=== PATIENT | male | born 1970 | race Caucasian/White ===

== ENCOUNTER 2019-10-04 15:03 | Emergency (ER) | payer BC, OTHER ==
[~2019-10-04] VITALS: Ht 180.3 cm; Wt 88.6 kg
[2019-10-04] MEDS ORDERED: ATEN50TA2 PO (15:15)
[2019-10-04 15:33] LABS: BASO % 0.4 % (0.0-1.0); EOS # 0.1 10^3/uL (0.0-0.5); EOS % 1.3 % (0.0-3.0); HEMATOCRIT 49.5 % (42.0-52.0); HEMOGLOBIN 17.1 g/dl (13.5-17.5); LYMPH # 2.6 10^3/uL (1.5-5.0); LYMPH % 33.9 % (24.0-44.0); MEAN CORPUSCULAR HEMOGLOBIN 32.8 pg (27.0-33.0); MEAN CORPUSCULAR HGB CONC 34.5 g/dl (32.0-36.5); MEAN CORPUSCULAR VOLUME 94.8 fl (80.0-96.0); MONO # 0.7 10^3/uL (0.0-0.8); NEUTROPHILS # 4.3 10^3/uL (1.5-8.5); PLATELET COUNT, AUTOMATED 170 10^3/uL (150-450); RED BLOOD COUNT 5.22 10^6/uL (4.30-6.10); WHITE BLOOD COUNT 7.8 10^3/uL (4.0-10.0)
--- NOTE | 2019-10-04 15:39 | REP ---
Clinical: Chest pain . Comparison: 05/14/2007 . Findings: The mediastinum and cardiac silhouette are stable and within normal limits for portable technique. 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 The lung alarcon are clear without acute consolidation, effusion, or pneumothorax. Skeletal structures are intact. Impression: No acute cardiopulmonary process appreciated. Known congenital malformation of the aorta. Electronically Signed by Jc Llanos MD 10/04/2019 03:30 P
[2019-10-04 16:12] LABS: ALBUMIN 3.4 GM/DL (3.2-5.2); ALT/SGPT 108 U/L (12-78); BILIRUBIN,DIRECT 0.2 MG/DL (0.0-0.2); BILIRUBIN,TOTAL 0.7 MG/DL (0.2-1.0); BLOOD UREA NITROGEN 27 MG/DL (7-18); CALCIUM LEVEL 9.6 MG/DL (8.5-10.1); CARBON DIOXIDE LEVEL 30 MEQ/L (21-32); CHLORIDE LEVEL 104 MEQ/L (98-107); CK-MB VALUE MASS 1.3 NG/ML (<3.6); CPK CREATINE PHOSPHOKINASE 56 U/L (39-308); GLOMERULAR FILTRATION RATE > 60.0 (>60); GLUCOSE, FASTING 127 MG/DL (70-100); LIPASE 136 U/L (73-393); MB/CK RELATIVE INDEX 2.32 (< OR =4); POTASSIUM SERUM 4.8 MEQ/L (3.5-5.1); SODIUM LEVEL 139 MEQ/L (136-145); TOTAL PROTEIN 8.5 GM/DL (6.4-8.2); TROPONIN I < 0.02 NG/ML (< 0.10)
[2019-10-04] MEDS ORDERED: ISOVUE-370 76% 100ML VIAL (Q9967) As Ordered ONE (16:42)
--- NOTE | 2019-10-04 17:16 | REP ---
Clinical: Chest pain. History of anomalous thoracoabdominal aorta. Technique: Axial contrast enhanced images from the thoracic inlet to the upper abdomen with coronal and sagittal re-formations using angiographic technique. 100 ml Isovue 370 intravenous contrast material administered without complication. Comparison: 05/24/2007. 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 The anomalous duplicated aorta than extends caudally below the diaphragm and posterior to the spleen and left kidney where it tapers to approximately 1.8 cm maximal diameter. At the level of the bifurcation/origin of the anomalous aorta, the presumed normal descending thoracic aorta appears completely thrombosed as it extends below the diaphragmatic hiatus and demonstrates atherosclerotic changes with intimal calcifications. The ascending thoracic aorta through the aortic arch and proximal descending thoracic aorta appear essentially normal. There is no evidence for cardiomegaly or pericardial effusion. The pulmonary vasculature appears normal. The bilateral lung alarcon are clear and without consolidation. No evidence for adenopathy. Impression: 1. 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 The aneurysm represents a relatively new finding as compared to chest CT dated 2006. Details as described above. 2. The remainder of the mediastinum and lung alarcon are normal / clear respectively. Electronically Signed by Jc Llanos MD 10/04/2019 05:07 P
--- NOTE | 2019-10-04 17:20 | REP ---
Clinical: Epigastric pain. Technique: Axial contrast enhanced images from the lung bases to the pubic symphysis with coronal and sagittal re-formations using 100 ml Isovue 370 intravenous contrast material. Findings: There appears to be complete thrombosis of the normal descending thoracic aorta extending to the upper abdomen with normal enhancement of a known anomalous duplicated thoracic aorta extending along the left posterior subpleural space into the left posterior abdomen behind the left kidney and spleen which then courses medially along the left psoas muscle to the normal position before bifurcating to common iliac arteries and backfilling the cranial portion of the abdominal aorta and branch vessels including celiac axis, superior mesenteric artery, renal arteries and inferior mesenteric artery. Liver, spleen, pancreas, gallbladder, bilateral adrenal glands and kidneys appear relatively normal. The enteric system is unremarkable and without obstruction or acute inflammatory process. Normal bladder and age appropriate prostate/seminal vesicles noted at no ascites. No free air. No adenopathy. Surrounding musculoskeletal structures are intact. Impression: 1. No acute abdominopelvic pathology appreciated. 2. 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 Electronically Signed by Jc Llanos MD 10/04/2019 05:12 P
[2019-10-04] MEDS ORDERED: MORPHINE 2 MG/ML 1ML VIAL (J2270) As Ordered ONE (18:04)
[2019-10-04] MEDS ORDERED: LABETALOL HCL 100 MG/20 ML VIAL IV STA ×2 (18:06→18:55)
[2019-10-04] MEDS: MORPHINE 2 MG/ML 1ML VIAL (J2270) IV PRN ×2 (18:14→19:15)
[2019-10-04] MEDS ORDERED: LABETALOL HCL 200 MG in D5W 160 ML IV SCH (18:15)
[2019-10-04 19:21] VITALS: BP 142/91
[2019-10-04 19:25] VITALS: BP 142/91
--- NOTE | 2019-10-05 15:35 | ECGEPIP ---
[facility] - ED Test Date: 2019-10-04 Pat Name: MILLI CRAVEN Department: Room: - Gender: Male Vp Informatics: : 1970 Requested By: NILSON Kiser Order Number: [id number] Reading MD: Gael Abernathy Measurements Intervals [place] Rate: 84 P: 80 MN: 132 QRS: 61 QRSD: 97 T: 73 QT: 380 QTc: 451 Interpretive Statements SINUS RHYTHM WITH SINUS ARRHYTHMIA POOR R WAVE PROGRESSION RIGHT ATRIAL ENLARGEMENT TALL T-WAVES, SUGGESTS HYPERKALEMIA NO PRIORS FOR COMPARISON Electronically Signed on 10-05-2019 15:35:11 EST by Gael Abernathy
== END 2019-10-04 19:26 | disposition short-term general hospital (02) ==
LOC: M ED 15:03
DX: I71.2 Thoracic aortic aneurysm, without rupture (principal); I10 Essential (primary) hypertension; Z98.61 Coronary angioplasty status; F17.218 Nicotine dependence, cigarettes, with other nicotine-induced disorders
CPT/HCPCS: 71045; 71275; 74177; 80048; 80076; 82550; 82553; 83690; 84484; 85025; 93005; 93041; 94760; 96374; 96375; 96376; 99285; J2270; Q9967

== ENCOUNTER → 2019-10-31 | Outpatient (CLI) | payer OTHER ==
[~2019-10-31] MED LIST: ATEN50TA2 PO; ISOVUE-370 76% 100ML VIAL (Q9967) As Ordered ONE
--- NOTE | 2019-10-31 17:06 | REP ---
CT of the chest with IV contrast for follow up evaluation of aortic coarctation: Comparison studies are the CT of the chest dated 10/04/2019 and 05/24/2007 as well as of the abdomen pelvis CT of 10/04/2019. 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 There is duplication of the aorta in the chest with the duplicated portion of the aorta reentering the abdominal aorta below the level of the renal arteries. On the prior study of 10/04 2019, there was a 5.2 cm saccular aneurysm in the duplicated segment of the aorta. On the study today there is an endovascular graft within the aneurysm of the duplicated aorta. No endovascular leak is identified. There again is thrombus within the [place] aorta at and above the level of the coarctation, as previously. The duplicated aorta is patent. The ascending aorta and aortic arch are unremarkable, as previously. The cardiac size is normal. There is no pericardial effusion. The lung alarcon are clear. There is no mediastinal or hilar adenopathy. The skeletal structures are unremarkable. The visualized upper abdomen is unremarkable except for the aorta coarctation/duplication anomaly. Impression: There is an endovascular stent within the aortic aneurysm as described. There is no evidence of endovascular leak. The aortic coarctation/duplication anomaly is as previously described. Electronically Signed by Dg Ocampo MD 10/31/2019 04:58 P
== END ==
LOC: M RAD 12:55
PROVIDERS: ATTEND Surgery
DX: Q25.1 Coarctation of aorta (principal); I71.9 Aortic aneurysm of unspecified site, without rupture; I74.09 Other arterial embolism and thrombosis of abdominal aorta; Z98.61 Coronary angioplasty status
CPT/HCPCS: 71260; Q9967

== ENCOUNTER 2024-11-25 14:49 | Inpatient (IN) | payer OTHER ==
[2024-11-25] VITALS (14 sets, daily range): BP systolic 128–167; BP diastolic 60–92; TEMP 97–98.5; O2SAT 92–96
[~2024-11-25] VITALS: Ht 185.4 cm; Wt 92.2 kg
[~2024-11-25 14:49] MED LIST changes: -ISOVUE-370 76% 100ML VIAL (Q9967) As Ordered ONE
[2024-11-25] MEDS ORDERED: LIPI10TA PO (14:59)
[2024-11-25] MEDS ORDERED: ISOVUE-370 76% 100ML VIAL As Ordered ONE (15:09)
[2024-11-25] MEDS ORDERED: ATOR80TA59 PO (15:46)
[2024-11-25] MEDS ORDERED: AMLO1TAB25 PO (15:46)
[2024-11-25] MEDS ORDERED: LISI10TA22 PO (15:46)
[2024-11-25] MEDS ORDERED: HOME MED LIST COMPLETE! XX SCH (15:50)
[2024-11-25 16:09] LABS: BASO % 0.4 % (0.0-1.0); EOS # 0.1 10^3/uL (0.0-0.5); EOS % 1.6 % (0.0-3.0); HEMATOCRIT 43.8 % (42.0-52.0); HEMOGLOBIN 15.4 g/dl (13.5-17.5); LYMPH % 24.6 % (24.0-44.0); MEAN CORPUSCULAR HEMOGLOBIN 32.8 pg (27.0-33.0); MEAN CORPUSCULAR HGB CONC 35.2 g/dl (32.0-36.5); MEAN CORPUSCULAR VOLUME 93.2 fl (80.0-96.0); MONO # 0.7 10^3/uL (0.0-0.8); MONO % 8.1 % (2.0-8.0); NEUTROPHILS # 5.3 10^3/uL (1.5-8.5); NEUTROPHILS % 65.1 % (36.0-66.0); PLATELET COUNT, AUTOMATED 155 10^3/uL (150-450); WHITE BLOOD COUNT 8.2 10^3/uL (4.0-10.0)
[2024-11-25 16:30] LABS: INR 1.05; PARTIAL THROMBOPLASTIN TIME 27.7 SECONDS (24.8-34.2)
[2024-11-25] MEDS: TENECTEPLASE 50 MG/10 ML VIAL IVP ONE (17:57)
[2024-11-25] MEDS: SODIUM CHLORIDE 0.9% INJ 10 ML SYR IV ONE ×2 (18:01→22:44)
[2024-11-25 18:47] LABS: CALCIUM LEVEL 9.4 MG/DL (8.5-10.1); CREATININE FOR GFR 1.58 MG/DL (0.70-1.30); GLOMERULAR FILTRATION RATE 48.9 (>56); POTASSIUM SERUM 5.2 MMOL/L (3.5-5.1)
[2024-11-25] MEDS: ATORVASTATIN 20 MG TAB PO SCH (22:00)
[2024-11-26] VITALS (28 sets, daily range): BP systolic 113–151; BP diastolic 56–81; TEMP 97.7–98.8; O2SAT 91–98
[2024-11-26 08:31] LABS: HEMOGLOBIN A1c 6.3 % (4.0-6.0)
[2024-11-26 08:34] LABS: CALCIUM LEVEL 9.2 MG/DL (8.5-10.1); CHOLESTEROL RISK RATIO 3.69 (<5); CREATININE FOR GFR 1.45 MG/DL (0.70-1.30); HDL CHOLESTEROL 23.8 MG/DL (>40); NON-HDL-C 64.2 MG/DL; POTASSIUM SERUM 4.7 MMOL/L (3.5-5.1)
[2024-11-26] MEDS ORDERED: GLUCAGON INJ 1MG VIAL SC PRN (10:30)
[2024-11-26] MEDS ORDERED: GLUCOSE 4 GM CHEW PO PRN (10:30)
[2024-11-26] MEDS ORDERED: DEXTROSE 50% 50ML SYRINGE IV PRN (10:30)
[2024-11-26] MEDS: INSULIN LISPRO (NovoLOG) PER UNIT SC SCH ×2 (12:00→20:03)
[2024-11-26] MEDS: ACETAMINOPHEN 325 MG TAB PO PRN (13:43)
[2024-11-26] MEDS ORDERED: LORazepam 2 MG/ML 1ML VIAL IV PRN (15:15)
[2024-11-26] MEDS: LORazepam 1 MG TAB PO PRN (17:20)
[2024-11-26] MEDS: ASPIRIN 81MG ENTERIC TABLET PO SCH (18:45)
[2024-11-26] MEDS: CLOPIDOGREL 75 MG TAB PO SCH (18:45)
[2024-11-27] VITALS (11 sets, daily range): BP systolic 129–139; BP diastolic 66–86; TEMP 98.1–98.8; O2SAT 93–97
[2024-11-27 05:36] LABS: CREATININE FOR GFR 1.47 MG/DL (0.70-1.30); GLOMERULAR FILTRATION RATE 53.1 (>56); POTASSIUM SERUM 4.8 MMOL/L (3.5-5.1)
[2024-11-27 13:53] LABS: APPEARANCE, URINE CLEAR (CLEAR); BACTERIA, URINE AUTO NEGATIVE (NEGATIVE); BILIRUBIN, URINE AUTO NEGATIVE (NEGATIVE); BLOOD, URINE BLOOD NEGATIVE (NEGATIVE); COLOR, URINE YELLOW (YELLOW); GLUCOSE, URINE (UA) AUTO NEGATIVE (NEGATIVE); KETONE, URINE AUTO NEGATIVE (NEGATIVE); LEUKOCYTE ESTERASE, URINE AUTO NEGATIVE (NEGATIVE); MUCUS, URINE SMALL (NEGATIVE); NITRITE, URINE AUTO NEGATIVE (NEGATIVE); PROTEIN, URINE AUTO 3+ mg/dL (NEGATIVE); RBC, URINE AUTO 0 /HPF (0-3); SPECIFIC GRAVITY URINE AUTO 1.015 (1.002-1.035); SQUAMOUS EPITHELIAL CELL UR AU 0 /HPF (0-6); UROBILINOGEN, URINE AUTO 0.2 mg/dL (0.0-2.0); WBC, URINE AUTO 0 /HPF (0-3)
[2024-11-27 14:36] LABS: CREATININE,RANDOM URINE 124.8 MG/DL
[2024-11-27 14:43] LABS: TOTAL PROTEIN,RANDOM URINE 151.7 MG/DL (0.0-14.0)
[2024-11-27] MEDS ORDERED: CLOP75TA2 PO (15:35)
[2024-11-27] MEDS ORDERED: ATOR80TA59 PO (15:35)
[2024-11-27] MEDS ORDERED: ASPI81TAEC PO (15:35)
== END 2024-11-27 19:48 | disposition short-term general hospital (02) | DRG 45 ==
LOC: M ED 14:49 → EDBD 14:49 → M ED INP 18:47 → M ICU 21:26 → M MSPAV 11-27 14:47
PROVIDERS: ADMIT Internal Medicine Pulmonary Disease; ATTEND Student in an Organized Health Care Education/Training Program
DX: I63.132 Cerebral infarction due to embolism of left carotid artery (principal); N17.9 Acute kidney failure, unspecified; E87.5 Hyperkalemia; I36.0 Nonrheumatic tricuspid (valve) stenosis; I10 Essential (primary) hypertension; R73.03 Prediabetes; E78.5 Hyperlipidemia, unspecified; Z87.891 Personal history of nicotine dependence; Z79.899 Other long term (current) drug therapy; I63.112 Cerebral infarction due to embolism of left vertebral artery